=== PATIENT | female | born 1965 | race Hispanic/Latino ===

== ENCOUNTER 2018-11-10 03:20 | Emergency (ER) | payer BC, SELFPAY ==
[2018-11-10] MEDS ORDERED: FENTANYL CITR 100 MCG/2 ML ONE (03:45)
[2018-11-10] MEDS ORDERED: NA CHLORIDE 0.9% 1,000 ML ONE ×3 (03:46→07:00)
[2018-11-10 04:01] LABS: Absolute Lymphocytes (CBC) 1.1 K/uL (0.7-4.9); Absolute Monocytes 0.4 K/uL (0.1-1.3); Absolute Neutrophil 7.4 K/uL (1.8-8.0); Basophils % 0.4 % (0-1.3); Eosinophils % 0.2 % (0-4.4); Hematocrit 42.5 % (36.0-45.0); Lymphocytes % 12.4 % (15.3-44.8); MPV 9.2 fL (7.6-11.3); Monocytes % 4.7 % (3.3-12.3); RBC Red Blood Cell Count 4.81 M/uL (3.86-4.86)
[2018-11-10 04:07] LABS: Potassium 3.9 mmol/L (3.5-5.1)
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
[2018-11-10] MEDS ORDERED: MORPHINE 4 MG/ML SYR ONE (07:05)
[2018-11-10 07:22] VITALS: TEMP 98.3
[2018-11-10 07:23] VITALS: BP 115/61; O2SAT 98
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
--- NOTE | 2018-11-10 10:57 | RAD REPORT ---
EXAM DESCRIPTION: Luis Single View11/10/2018 4:12 am CLINICAL HISTORY: Chest pain COMPARISON: none FINDINGS: The lungs appear clear of acute infiltrate. The heart is normal size IMPRESSION: No acute abnormalities displayed
== END 2018-11-10 07:15 | disposition short-term general hospital (02) ==
LOC: ER 03:20
DX: S32.039A Unspecified fracture of third lumbar vertebra, initial encounter for closed fracture (principal); V49.40XA Driver injured in collision with unspecified motor vehicles in traffic accident, initial encounter
CPT/HCPCS: 36415; 70450; 71045; 71260; 72125; 74177; 80048; 85025; 86850; 86900; 86901; 96361; 96374; 96375; 99285; J3010; J7030; Q9967

== ENCOUNTER 2022-07-29 21:18 | Emergency (ER) | payer OTHER, SELFPAY ==
--- OUTSIDE RECORDS SUMMARY | 2022-07-29 21:21 | XMS REPORT | Continuity of Care Document ---
:1965 Author Organization [facility] t Address [address] [place] [address] Care Team Providers Name Role Phone Adam Borden Attending Clinician Unavailable Oswaldo Attending Clinician Unavailable Muriel López Attending Clinician [phone] Mariana Brown DO Attending Clinician MARIANA BROWN Attending Clinician Unavailable ROMELIA DODSON M.D. Attending Clinician Unavailable Adam Borden Admitting Clinician Unavailable Oswaldo Admitting Clinician Unavailable Payers Payer Name Policy Type Policy Number Effective Date Expiration Date Barbie baker [place] (EPO) [id number] 2021 00:00:00 [facility] [id number] (EPO) [facility] [id number] (HMO) [facility] [id number] 2015 00:00:00 Problems Condition Condition Condition Status Onset Resolution Last Treating Co mments Source Name Details Category Date Date Treatment Clinician Date No known No known Disease Unive rs active active ity of problems problems [facility] History of History of Problem [facility]olve [facility] cholestero cholestero an s l l Lumbar Lumbar Problem Active [facility] pain pain Physici ans Thoracic Thoracic Problem Active [facility] back pain back pain Phys ici ans Traumatic Traumatic Problem Active [facility] compressio compressio Ph ysici n fracture n fracture an s of L1 of L1 lumbar lumbar vertebra vertebra with with routine routine healing, healing, subsequent subsequent encounter encounter Compressio Compressio Problem Active U T n fracture n fracture Ph ysici of T1 of T1 ans vertebra vertebra with with routine routine healing healing Allergies, Adverse Reactions, Alerts Allergy Allergy Status Severity Reaction(s) Onset Inactive Treating Comm ents Source Name Type Date Date Clinician ibuprofe DA Active SV BREAK OUT [facility] n HIVES 03-10 [place] 00:00: d 00 [facility] [place] canola FA Active SV HIVES [facility] oil 03-10 [place] 00:00: d 00 [facility] [place] Mink Oil Propensi Active Hives Univer s ty to 10-15 ity of adverse 00:00: [place] reaction 00 Medical s Branch MINK OIL DRUG Active Hives Univers INGREDI 10-15 ity of 00:00: [place] 00 Medical Branch Penicill drug Active UT ins allergy Physici ans sulfa drug Active [facility] allergy Physici ans Family History Family Member Diagnosis Comments Start Date Stop Date Source Unknown Family Family history of Family History [facility] Member asthma Social History Social Habit Start Date Stop Date Quantity Comments Source Sex Assigned At Uni versity [facility] Exposure to SARS-CoV-2 Not sure [facility] [place] (event) [facility] [place] Smoking Status Start Date Stop Date Source Unknown if ever smoked Universit y [facility] Medications Ordered Filled Start Stop Current Ordering Indication Dosage Frequency Signature Comments Components Source Medication Medication Date Date Medication? Clinician (SIG) Name Name predniSONE 2020- No [id number] 50mg Take 5 Univers 10 mg 10-16 tablets by ity of tablet 00:00: 05:59 mouth [place] 00 :00 daily for Medical 4 days. Branch EPINEPHrine 2020- No .3mg 0.3 mg, Un gene 1:1,000 (10-15 Intramuscu it y of mg/mL) 11:45: 11:45 lar, [place]CE[place] (ADRENALIN[place] 00 :00 1 dose, Medic al injection 10/15/20 Bran ch 0.3 mg at 0545, STAT famotidine 2020- No 20mg 20 mg, Univ ers (PEPCID 10-15 Slow IV ity of (PF)) 11:45: 10:49 Push, [place] injection 00 :00 ONCE, 1 Medical 20 mg dose, Fri Branch 10/15/20 at 0545, PAM diphenhydrA No 25mg 25 mg, Uni vers MINE 10-15 Slow IV ity of (BENADRYL) 11:45: 10:49 Push, [place] injection 00 :00 ONCE, 1 Medical 25 mg dose, Fri Branch 10/15/20 at 0545, STAT methylpredn No 125mg 125 mg, IV Univers isolone sod 10-15 Piggyback, i ty of succ 11:45: 10:47 ONCE, 1 [place] (SOLU-MEDRO 00 :00 dose, Sun Med ical L) 10/15/20 at Branch injection 0545, STAT 125 mg EPINEPHrine No [id number] .15mg 0.3 mL by Univers 0.15 mg/0.3 10-15 Intramuscu i ty of mL 00:00: 05:59 lar route [place] injection 00 :00 once now Medica l for 1 Branch dose. ketorolac Yes 10mg Take 1 [facility] s 10 mg 6-09 tablet by ity of tablet 00:00: mouth [place] 00 every 6 Medical (six) Branch hours as needed for Pain (scale 7-10). Atorvastati Atorvastati Yes U T n Calcium n Calcium Physi ci 80 MG Oral 80 MG Oral ans Tablet Tablet Vital Signs Vital Name Observation Time Observation Value Comments Source Systolic blood 2020-10-15 12:00:00 117 mm[Hg] [facility]astolic blood 2020-10-15 12:00:00 70 mm[Hg] [facility] Heart rate 2020-10-15 12:00:00 96 /min [facility] Respiratory rate 2020-10-15 12:00:00 15 /min [facility] Oxygen saturation in 2020-10-15 12:00:00 97 /min [facility] Arterial blood by [facility] Pulse oximetry Branch Body temperature 2020-10-15 10:41:00 36.56 Vy [facility] Body height 2020-10-15 10:41:00 177.8 cm [facility] Body weight 2020-10-15 10:41:00 70.308 kg [facility] BMI 2020-10-15 10:41:00 22.24 kg/m2 [facility] Height 2018-11-25 12:11:00 67 [in_us] [facility] Weight 2018-11-25 12:11:00 153 [lb_av] [facility] Body Mass Index 2018-11-25 12:11:00 23.96 kg/m2 [facility] Calculated Height 2018-11-20 08:37:00 60 [in_us] [facility] Weight 2018-11-20 08:37:00 9 [lb_av] [facility] Body Mass Index 2018-11-20 08:37:00 1.76 kg/m2 [facility] Calculated Procedures Procedure Date / Time Performed Performing Clinician [facility] e Physical Therapy 2019-02-12 00:00:00 [facility] [U] XRAY SPINE THORACIC 2 2019-02-11 00:00:00 [facility] VWS [id number] [U] XRAY SPINE LUMBOSACRAL 2 2019-02-11 00:00:00 [facility] OR 3 VWS [id number] [U] XRAY SPINE LUMBOSACRAL 2 2018-12-11 00:00:00 [facility] OR 3 VWS [id number] [U] XRAY SPINE THORACIC 2 2018-12-11 00:00:00 [facility] VWS [id number] History of Tonsillectomy [facility] History of Appendectomy [facility] History of Gallbladder [facility] surgery Encounters Start End Encounter Admission Attending Care Care Encounter Source Date/Time Date/Time Type Type Clinicians Facility Department ID 2022-07-11 2022-07-11 Outpatient Adam Sun [facility] DAYS 0 [id number] [facility] 05:30:00 05:30:00 93 [facility] 2022-04-15 2022-04-15 [id number] [place] 01:56:00 01:56:00 [id number] [facility] 2022-03-15 2022-03-15 Outpatient Adam Sun [facility] LA6 [id number] [facility] 08:32:00 08:32:00 [id number] [facility] 2022-03-15 2022-03-15 Outpatient Adam Sun [facility] DA[facility] LA0 [id number] [facility] 08:32:00 08:32:00 18 [facility] 2022-03-11 2022-03-11 Outpatient Matheson_L [facility] [id number] [place] 02:32:00 02:32:00 [facility] 2022-02-07 2022-02-07 Outpatient Matheson_L [facility]U [id number] [place] 10:35:00 10:35:00 [facility] 2022-02-07 2022-02-07 Outpatient Matheson_L [facility]U [id number] [place] 10:35:00 10:35:00 [facility] 2021-12-29 2021-12-29 Outpatient Matheson_L [facility]U [facility]U [id number] [place] 11:06:00 11:06:00 [id number] [facility] 2021-12-29 2021-12-29 Outpatient Matheson_L [facility]U [facility]U [id number] [place] 11:06:00 11:06:00 [id number] [facility] 2021-12-29 2021-12-29 Outpatient Matheson_L [facility]U [facility]U [id number] [place] 11:06:00 11:06:00 [id number] [facility] 2021-12-29 2021-12-29 Outpatient Matheson_L HMU HMU [id number] [place] 11:06:00 11:06:00 [id number] [facility] 2021-12-21 2021-12-21 Outpatient Matheson_L [facility]U HMU [id number] [place] 11:37:00 11:37:00 [facility] 2021-12-20 2021-12-20 Outpatient Matheson_L HMU HMU [id number] [place] 06:40:00 06:40:00 [facility] 2021-12-20 2021-12-20 Outpatient Rene, [facility]U HMU [id number] 00:00:00 00:00:00 Muriel [id number] 2021-12-15 2021-12-15 Outpatient Matheson_L HMU HMU [id number] [place] 02:27:00 02:27:00 [facility] 2021-12-13 2021-12-13 Outpatient Oswaldo [facility]U U [id number] [place] 04:19:00 04:19:00 [facility] 2020-10-15 2020-10-15 [facility] [id number] Univers 04:37:00 07:00:00 [id number] [id number] [place] [id number] Branch 2020-10-15 2020-10-15 Emergency [facility] [id number] Univers 04:37:00 04:37:00 MARIANA [facility] [place] 2019-02-12 2019-02-12 L[facility] [id number] [place] 14:00:00 14:00:00 t; [facility] 2018-12-16 2018-12-16 [facility] 50 [id number] [place] 08:45:00 08:45:00 t; [facility] 2018-11-18 2018-11-18 [facility] 49 [id number] [place] 10:00:00 10:00:00 t; [facility] Results Test Description Test Time Test Comments Results Result Comments Source PROTHROMBIN TIME 2022-07-10 10:24:00 Test Item Value Reference Range Interpretation Comme nts PT PATIENT (test code = PTP) 12.0 SECONDS 9.3-12.9 N INTERNATIONAL NORMAL RATIO 1.05 INR Unit 0.8-1.2 N TARGET INR BY INDICATION (test code = INR) Indication INR1. Prophylaxis of venous thrombos is 2.0 - 3.0 (orthopedic cuauhtemoc yariel), Prophylaxis of venous thrombosis (oth er than high-risk surge ry), Treatment of Deep Vein Thrombosis/Pulm onary Embolism, Prevention of s ystemic embolism - Tissue heart valves, Acute Myocardial Infa rction (to prevent systemi c embolism), Valvular heart disease, Acute Myocardial Infa rction (to prevent systemi c embolism), Valvular heart disease, Atrial Fibrillation, B ileaflet mechanical valv e in aortic position.2. Mec hanical prosthetic valv es (high risk), 2.5 - 3.5 Prese nce of Lupus Anticoagulant o r Antiphospholipi d Antibodies, Prevention of s ystemic embolism - Acute Myocard ial Infarction (to prevent rec urrent infarct). THROMBOPLASTIN TIME [id number] 10:24:00 Test Item Value Reference Range Interpretation Comments THROMBOPLASTIN TIME PARTIAL 33.2 SECONDS 26-35 N (test code = PTT) COVID 19 INHOUSE [id number] 10:10:00 Test Item Value Reference Range Interpretation Comments COVID 19 INHOUSE AG NEGATIVE Negative Per manu facturer, (test code = negative result s should [id number]) be treated aspr esumptive and, if inconsi stent with clinical signs andsymptoms or necessary for patient man agement, should betested with an alternative mol ecular assay. Negative resultsdo not preclude SA RS-CoV-2 infection and s hould not be usedas the s ole basis for patient man agement decisions. Nega tive results should be considered in t he context of apatient's r ecent exposures, hist ory, presence of cli nicalsigns and symptoms co nsistent with COVID-19. BASIC METABOLIC [id number] 10:08:00 Test Item Value Reference Range Interpretation Comments SODIUM (test code = NA) 137 mmol/L 134-147 N POTASSIUM (test code = 4.0 mmol/L 3.4-5.0 N K) CHLORIDE (test code = 102 mmol/L 100-108 N CL) CARBON DIOXIDE (test 29 mmol/L 21-32 N code = CO2) ANION GAP (test code = 6.0 GAP calc 4.0-15.0 N GAP) GLUCOSE (test code = 91 MG/DL 70-110 N GLU) BLOOD UREA NITROGEN 17 MG/DL 7-18 N (test code = BUN) GLOMERULAR FILTRATION >=60 max estimate >60 RATE (test code = GFR) estGFR CREATININE (test code = 0.8 MG/DL 0.6-1.0 N CREAT) CALCIUM (test code = CA) 9.8 MG/DL 8.5-10.1 N CBC W/AUTO [id number] 10:02:00 Test Item Value Reference Range Interpretation Comments WHITE BLOOD CELL (test code = 5.5 K/mm3 3.5-11.0 N WBC) RED BLOOD CELL (test code = 4.76 M/mm3 4.70-6.10 N RBC) HEMOGLOBIN (test code = HGB) 13.7 G/DL 10.4-14.9 N HEMATOCRIT (test code = HCT) 41.3 % 31.5-44.1 N MEAN CELL VOLUME (test code = 86.8 Fl 84.5-98.6 N MCV) MEAN CELL HGB (test code = MCH) 28.8 pg 27.0-34.2 N MEAN CELL HGB CONCETRATION 33.2 G/DL 31.5-34.0 N (test code = MCHC) RED CELL DISTRIBUTION WIDTH 12.7 SD 11.5-14.5 N (test code = RDW) PLATELET COUNT (test code = 293 K/mm3 150-450 N PLT) MEAN PLATELET VOLUME (test code 10.00 fL 7.0-10.5 N = MPV) NEUTROPHIL % (test code = NT%) 61.8 % 40-76 N IMMATURE GRANULOCYTE % (test 0.2 % 0.0-5.0 N code = IG%) LYMPHOCYTE % (test code = LY%) 26.8 % 20.5-51.1 N MONOCYTE % (test code = MO%) 10.1 % 1.7-9.3 H EOSINOPHIL % (test code = EO%) 0.7 % 0.0-6.0 N BASOPHIL % (test code = BA%) 0.4 % 0.0-2.0 N NUCLEATED RBC % (test code = 0.0 /100WBC% 0.0-1.0 N NRBC%) NEUTROPHIL # (test code = NT#) 3.4 K/mm3 1.8-7.6 N IMMATURE GRANULOCYTE # (test 0.01 x10 3/uL 0.00-0.03 N code = IG#) LYMPHOCYTE # (test code = LY#) 1.5 K/mm3 0.6-3.2 N MONOCYTE # (test code = MO#) 0.6 K/mm3 0.3-1.1 N EOSINOPHIL # (test code = EO#) 0.0 K/mm3 0.0-0.4 N BASOPHIL # (test code = BA#) 0.0 K/mm3 0.0-0.1 N NUCLEATED RBC # (test code = 0.0 K/mm3 0.0-0.1 N NRBC#) MANUAL DIFF REQUIRED (test code NO DIFF/SCN CRITERIA = MDIFF) BASIC METABOLIC [id number] 15:16:00 Test Item Value Reference Range Interpretation Comments SODIUM (test code = NA) 140 mmol/L 134-147 N POTASSIUM (test code = 4.9 mmol/L 3.4-5.0 N K) CHLORIDE (test code = 108 mmol/L 100-108 N CL) CARBON DIOXIDE (test 27 mmol/L 21-32 N code = CO2) ANION GAP (test code = 5.0 GAP calc 4.0-15.0 N GAP) GLUCOSE (test code = 97 MG/DL 70-110 N GLU) BLOOD UREA NITROGEN 14 MG/DL 7-18 N (test code = BUN) GLOMERULAR FILTRATION >=60 max estimate >60 RATE (test code = GFR) estGFR CREATININE (test code = 0.8 MG/DL 0.6-1.0 N CREAT) CALCIUM (test code = CA) 9.7 MG/DL 8.5-10.1 N COVID 19 INHOUSE [id number] 15:12:00 Test Item Value Reference Range Interpretation Comments COVID 19 INHOUSE AG NEGATIVE Negative Per manu facturer, (test code = negative result s should [id number]) be treated aspr esumptive and, if inconsi stent with clinical signs andsymptoms or necessary for patient man agement, should betested with an alternative mol ecular assay. Negative resultsdo not preclude SA RS-CoV-2 infection and s hould not be usedas the s ole basis for patient man agement decisions. Nega tive results should be considered in t he context of apatient's r ecent exposures, hist ory, presence of cli nicalsigns and symptoms co nsistent with COVID-19. PROTHROMBIN [id number] 15:00:00 Test Item Value Reference Range Interpretation Comments PT PATIENT (test 11.6 SECONDS 9.3-12.9 N code = PTP) INTERNATIONAL NORMAL 1.02 INR Unit 0.8-1.2 N TARGE T INR BY RATIO (test code = INDICATIO N Indication INR) INR1. Prophylax is of venous thrombos is 2.0 - 3.0 (orthoped ic surgery), Proph ylaxis of venous throm bosis (other than hig h-risk surgery), Treat ment of Deep Vein Thrombosis/Pulm onary Embolism, Preve ntion of systemic emb olism - Tissue heart va lves, Acute Myocardia l Infarction (to prevent systemic emboli sm), Valvular heart disease, Acute Myocardial Infa rction (to prevent sys temic embolism), Valv ular heart disease, Atrial Fibrillation, Bileaflet mecha nical valve in aortic position.2. Mec hanical prosthetic valv es (high risk), 2. 5 - 3.5 Presence of Lup us Anticoagulant o r Antiphospholipi d Antibodies, Pre vention of systemic emb olism - Acute Myocardia l Infarction (to prevent recurrent infar ct). THROMBOPLASTIN TIME [id number] 15:00:00 Test Item Value Reference Range Interpretation Comments THROMBOPLASTIN TIME PARTIAL 33.1 SECONDS 26-35 N (test code = PTT) CBC W/AUTO [id number] 14:54:00 Test Item Value Reference Range Interpretation Comments WHITE BLOOD CELL (test code = 5.9 K/mm3 3.5-11.0 N WBC) RED BLOOD CELL (test code = 4.72 M/mm3 4.70-6.10 N RBC) HEMOGLOBIN (test code = HGB) 13.7 G/DL 10.4-14.9 N HEMATOCRIT (test code = HCT) 41.0 % 31.5-44.1 N MEAN CELL VOLUME (test code = 86.9 Fl 84.5-98.6 N MCV) MEAN CELL HGB (test code = MCH) 29.0 pg 27.0-34.2 N MEAN CELL HGB CONCETRATION 33.4 G/DL 31.5-34.0 N (test code = MCHC) RED CELL DISTRIBUTION WIDTH 12.3 SD 11.5-14.5 N (test code = RDW) PLATELET COUNT (test code = 285 K/mm3 150-450 N PLT) MEAN PLATELET VOLUME (test code 10.20 fL 7.0-10.5 N = MPV) NEUTROPHIL % (test code = NT%) 60.5 % 40-76 N IMMATURE GRANULOCYTE % (test 0.2 % 0.0-5.0 N code = IG%) LYMPHOCYTE % (test code = LY%) 27.9 % 20.5-51.1 N MONOCYTE % (test code = MO%) 10.1 % 1.7-9.3 H EOSINOPHIL % (test code = EO%) 0.8 % 0.0-6.0 N BASOPHIL % (test code = BA%) 0.5 % 0.0-2.0 N NUCLEATED RBC % (test code = 0.0 /100WBC% 0.0-1.0 N NRBC%) NEUTROPHIL # (test code = NT#) 3.6 K/mm3 1.8-7.6 N IMMATURE GRANULOCYTE # (test 0.01 x10 3/uL 0.00-0.03 N code = IG#) LYMPHOCYTE # (test code = LY#) 1.7 K/mm3 0.6-3.2 N MONOCYTE # (test code = MO#) 0.6 K/mm3 0.3-1.1 N EOSINOPHIL # (test code = EO#) 0.1 K/mm3 0.0-0.4 N BASOPHIL # (test code = BA#) 0.0 K/mm3 0.0-0.1 N NUCLEATED RBC # (test code = 0.0 K/mm3 0.0-0.1 N NRBC#) MANUAL DIFF REQUIRED (test code NO DIFF/SCN CRITERIA = MDIFF) - XR CHEST 1 [id number] 14:50:00 [facility] FRANKIELANDName: LIVIA WILSON : 1965 Sex: F Name: LIVIA HILLIARD [place] : 1965 Age/S: 57 / F [id number] Unit #: [id number] Loc:[place] [address] Phys: Adam Borden MD Acct: [id number] Dis Date: Status: PRE PRC PHONE #: [phone] Exam Date: 03/10/2022 1446 FAX #: Reason: PRE OP EXAMS: CPT: [id number] XR CHEST 1 V [id number] Fluoro Time: DAP (Gy m2): Air Kerma (mGy): - XR CHEST 1 V INDICATION:Preop LOCATION: T18 The lungs areclear. The cardiomediastinal silhouette is within normal limits. The bony thorax is unremarkable. IMPRESSION: No active disease. at 1450 Reported and signed by: Remigio Akers M.D. CC: Adam Borden MD PAGE 1 Signed Report Name: LIVIA WILSON [place] : 1965 Age/S: 57 / F [id number] Unit #: [id number] Loc: [place] [address] Phys: Adam Borden MD Acct: [id number] Dis Date: Status: PRE [facility] PHONE #: [phone] Exam Date: 03/10/2022 1446 FAX #: Reason: PRE OP EXAMS: CPT: [id number] XR CHEST 1 V [id number] Fluoro Time: DAP (Gy m2): Air Kerma (mGy): (Continued) Technologist: Melly Patel, RT(R) Trnscb Date/Time: 03/10/2022 (1450) Echo Orig Print D/T: S: 03/10/2022 ([id number]) PAGE 2 Signed Report
[2022-07-29] MEDS ORDERED: FAMOTIDINE 20 MG/2 ML VIAL IV ONE (21:45)
--- NOTE | 2022-07-29 23:20 | ER ---
Nurse's Notes [facility] Name: Karen Orellana Age: 57 yrs Sex: Female : 1965 Arrival Date: 07/29/2022 Time: 21:44 Bed 28 Private MD: Diagnosis: Allergic Reaction;Urticaria, unspecified Presentation: 07/29 21:57 Chief complaint: EMS states: they were toned out for report of pt having an allergic bb reaction. Coronavirus screen: At this time, the client does not indicate any symptoms associated with coronavirus-19. Ebola Screen: No symptoms or risks identified at this time. Onset: The symptoms/episode began/occurred suddenly. Anaphylaxis evaluation, no signs or symptoms of anaphylaxis were noted. Initial Sepsis Screen: Does the patient meet any 2 criteria? No. Patient's initial sepsis screen is negative. Does the patient have a suspected source of infection? No. Patient's initial sepsis screen is negative. Risk Assessment: Do you want to hurt yourself or someone else? Patient reports no desire to harm self or others. Onset of symptoms was July 29, 2022. 21:57 Method Of Arrival: EMS: [facility] bb 21:57 Acuity: JESSIKA 4 bb Historical: - Allergies: 21:59 ibuprofen; bb 21:59 multiple environmental allergies; bb - Immunization history:: Client reports having NOT received the Covid vaccine. - Social history:: Smoking status: unknown. Screenin:00 Abuse screen: Denies threats or abuse. Nutritional screening: No deficits noted. bb Tuberculosis screening: No symptoms or risk factors identified. Fall Risk None identified. Assessment: 22:00 General: Appears in no apparent distress. uncomfortable, Behavior is calm, cooperative. bb Pain: Denies pain. Neuro: Level of Consciousness is awake, alert, obeys commands, Oriented to person, place, time, situation. Cardiovascular: Capillary refill < 3 seconds Patient's skin is warm and dry. Respiratory: Airway is patent Respiratory effort is even, unlabored, Breath sounds are clear bilaterally. GI: No signs and/or symptoms were reported involving the gastrointestinal system. Derm: Skin is pink, warm \T\ dry. Musculoskeletal: Circulation, motion, and sensation intact. 22:09 Reassessment: Patient states feeling better. Patient states symptoms have improved. tw5 General: Appears in no apparent distress. comfortable. 23:37 Reassessment: Patient states feeling better. Patient states symptoms have improved. tw5 General: Appears in no apparent distress. Behavior is calm. Vital Signs: 21:57 BP 124 / 67; Pulse 93; Resp 20 S; Temp 98(O); Pulse Ox 96% on R/A; Weight 72.57 kg (R); bb Height 5 ft. 7 in. (170.18 cm) (R); 23:37 BP 103 / 69; Pulse 85; Resp 18; Pulse Ox 99% on R/A; tw5 21:57 Body Mass Index 25.06 (72.57 kg, 170.18 cm) bb ED Course: 21:44 Patient arrived in ED. bb 21:44 John Mcpherson DO is Attending Physician. ms3 21:59 Triage completed. bb 21:59 Arm band placed on Patient placed in an exam room, on a stretcher, on pulse oximetry. bb 22:00 Patient has correct armband on for positive identification. Bed in low position. Call bb light in reach. Side rails up X2. Pulse ox on. NIBP on. Warm blanket given. 22:00 Maintain EMS IV. Site clean \T\ dry. Gauge \T\ site: 20g bilateral ACs. bb 22:08 Nicole Sherwood is Primary Nurse. tw5 23:18 Rk Chapman DO is Referral Physician. ms3 23:37 No provider procedures requiring assistance completed. IV discontinued, intact, tw5 bleeding controlled, No redness/swelling at site. Pressure dressing applied. Administered Medications: 21:56 Drug: Pepcid (famotidine) 20 mg Route: IVP; Site: right antecubital; bb 22:09 Follow up: Response: No adverse reaction tw5 Medication: 22:00 VIS not applicable for this client. bb Outcome: 23:19 Discharge ordered by MD. ms3 23:37 Discharged to home with family. tw5 23:37 Condition: improved 23:37 Discharge instructions given to patient, Instructed on discharge instructions, follow up and referral plans. medication usage, Demonstrated understanding of instructions, follow-up care, medications, Prescriptions given X 1. 23:48 Patient left the ED. tw5 Signatures: Jia Betts RN RN bb John Mcpherson DO DO ms3 Nicole Sherwood tw5 Corrections: (The following items were deleted from the chart) 23:38 23:37 BP 103 / 69; Pulse 18bpm; Pulse Ox 99% RA; tw5
--- NOTE | 2022-07-29 23:20 | EDPHYS ---
Physician Documentation [facility] Name: Karen Orellana Age: 57 yrs Sex: Female : 1965 Arrival Date: 07/29/2022 Time: 21:44 Bed 28 Private MD: ED Physician John Mcpherson HPI: 07/29 23:19 This 57 yrs old Female presents to ER via EMS with complaints of Allergic ms3 Reaction. 23:19 57-year-old female with past medical history of allergic reactions presents for ms3 allergic reaction to an unknown agent. EMS states patient had urticaria on their arrival. 25 mg of Benadryl was given IM and 25 mg Benadryl was given IV. 125 mg Solu-Medrol was given IV, and patient received 700 mL of IV fluids in route. Prior to EMSs arrival patient's family administered 0.3 mg epinephrine IM. On arrival patient states her symptoms have improved. Patient denies pain. Patient denies alleviating or inciting factors. Patient denies fevers, chills, nausea, vomiting. Historical: - Allergies: 21:59 ibuprofen; bb 21:59 multiple environmental allergies; bb - Immunization history:: Client reports having NOT received the Covid vaccine. - Social history:: Smoking status: unknown. ROS: 23:19 Constitutional: Negative for fever, and chills. Neck: Negative for injury, pain, and ms3 swelling, Cardiovascular: Negative for chest pain, and palpitations. 23:19 MS/Extremity: Negative for injury and deformity, Skin: Negative for injury, rash, and discoloration. 23:19 Respiratory: Positive for shortness of breath. 23:19 Skin: Positive for rash. 23:19 All other systems are negative. Exam: 23:19 Constitutional: This is a well developed, well nourished patient who is awake, alert, ms3 and in no acute distress. Head/Face: Normocephalic, atraumatic. Eyes: Pupils equal round and reactive to light, extra-ocular motions intact. Lids and lashes normal. Conjunctiva and sclera are non-icteric and not injected. Periorbital areas with no swelling, redness, or edema. Neck: Trachea midline, no cervical lymphadenopathy. Supple, full range of motion without nuchal rigidity, or vertebral point tenderness. No Meningismus. Chest/axilla: Normal chest wall appearance and motion. Nontender with no deformity. Cardiovascular: Regular rate and rhythm with a normal S1 and S2. No gallops, murmurs, or rubs. Normal PMI, no JVD. No pulse deficits. Respiratory: Lungs have equal breath sounds bilaterally, clear to auscultation and percussion. No rales, rhonchi or wheezes noted. No increased work of breathing, no retractions or nasal flaring. Abdomen/GI: Soft, non-tender, with normal bowel sounds. No distension or tympany. No guarding or rebound. No evidence of tenderness throughout. Skin: Warm, dry with normal turgor. Normal color with no rashes, no lesions, and no evidence of cellulitis. MS/ Extremity: Pulses equal, no cyanosis. Neurovascular intact. Full, normal range of motion. Neuro: Awake and alert, GCS 15, oriented to person, place, time, and situation. Cranial nerves II-XII grossly intact. Motor strength 5/5 in all extremities. Sensory grossly intact. Cerebellar exam normal. Normal gait. Psych: Awake, alert, with orientation to person, place and time. Behavior, mood, and affect are within normal limits. Vital Signs: 21:57 BP 124 / 67; Pulse 93; Resp 20 S; Temp 98(O); Pulse Ox 96% on R/A; Weight 72.57 kg (R); bb Height 5 ft. 7 in. (170.18 cm) (R); 23:37 BP 103 / 69; Pulse 85; Resp 18; Pulse Ox 99% on R/A; tw5 21:57 Body Mass Index 25.06 (72.57 kg, 170.18 cm) bb MDM: 21:44 Patient medically screened. ms3 23:19 Data reviewed: vital signs, nurses notes, and as a result, I will discharge patient. ms3 Counseling: I had a detailed discussion with the patient and/or guardian regarding: the historical points, exam findings, and any diagnostic results supporting the discharge/admit diagnosis, the need for outpatient follow up, to return to the emergency department if symptoms worsen or persist or if there are any questions or concerns that arise at home. ED course: Patient monitored in the emergency department and symptoms continue to improve. Patient states she is improved, she is alert and oriented x4, in no apparent distress, nontoxic-appearing. Patient to follow-up with her primary care physician in 2 to 3 days. Patient understands and agrees with plan. All questions were answered. Return cautions discussed include worsening symptoms, or any other concerns. Administered Medications: 21:56 Drug: Pepcid (famotidine) 20 mg Route: IVP; Site: right antecubital; bb 22:09 Follow up: Response: No adverse reaction tw5 Disposition Summary: 07/29/22 23:19 Discharge Ordered Location: Home ms3 Condition: Stable ms3 Diagnosis - Allergic Reaction ms3 - Urticaria, unspecified ms3 Followup: ms3 - With: Rk Chapman DO - When: 2 - 3 days - Reason: Recheck today's complaints Discharge Instructions: - Discharge Summary Sheet ms3 - Allergies, Adult ms3 - Hives, [id number] ms3 Forms: - Medication Reconciliation Form ms3 - Thank You Letter ms3 - Antibiotic Education ms3 - Prescription Opioid Use ms3 Prescriptions: - EpiPen 0.3 mg/0.3 mL Injection auto-injector - inject 0.3 milliliter by INTRAMUSCULAR route once, may repeat in 15 min if not ms3 improved as needed for anaphylaxis; 1 Dual Pack; Refills: 0, Product Selection Permitted Signatures: Jia Betts RN RN John Milligan DO DO ms3 Nicole Sherwood tw5
[2022-07-30 00:14] VITALS: TEMP 98
[2022-07-30 00:15] VITALS: BP 103/69; O2SAT 99
== END 2022-07-29 23:48 | disposition home or self-care (01) ==
LOC: ER 21:18
DX: T78.40XA Allergy, unspecified, initial encounter (principal); L50.9 Urticaria, unspecified; X58.XXXA Exposure to other specified factors, initial encounter
CPT/HCPCS: 96374; 99284

== ENCOUNTER 2024-05-31 15:36 | Emergency (ER) | payer OTHER ==
[2024-05-31] MEDS ORDERED: METHYLPREDNISOLONE 125 MG INJ ONE (16:48)
[2024-05-31] MEDS ORDERED: HYDROCODONE/APAP 10/325 TAB ONE (16:49)
[2024-05-31] MEDS ORDERED: ONDANSETRON 4 MG (ODT) TAB ONE (16:49)
--- NOTE | 2024-05-31 17:34 | ER ---
Nurse's Notes [facility] Name: Karen Orellana Age: 59 yrs Sex: Female : 1965 Arrival Date: 05/31/2024 Time: 15:36 Bed 14 Private MD: Diagnosis: Chronic thoracic back pain Presentation: 05/31 15:46 Chief complaint: Patient states: back pain x 2 weeks ago. aa5 15:46 Coronavirus screen: At this time, the client does not indicate any symptoms associated aa5 with coronavirus-19. Ebola Screen: Patient denies travel to an Ebola-affected area in the 21 days before illness onset. Initial Sepsis Screen: Does the patient meet any 2 criteria? No. Patient's initial sepsis screen is negative. Does the patient have a suspected source of infection? No. Patient's initial sepsis screen is negative. Risk Assessment: Do you want to hurt yourself or someone else? Patient reports no desire to harm self or others. Onset of symptoms was May 2024. 15:46 Acuity: JESSIKA 3 aa5 15:46 Method Of Arrival: Ambulatory aa5 Historical: - Allergies: 15:52 Ibuprofen (Hives); aa5 - PMHx: 15:52 Anxiety; Arthritis; Prolapsed bladder; Back pain; aa5 - Immunization history:: Adult Immunizations unknown. - Infectious Disease History:: Denies. - Social history:: Smoking status: Patient denies any tobacco usage or history of. Screenin:28 [facility] ED Fall Risk Assessment (Adult) History of falling in the last 3 months, db including since admission No falls in past 3 months (0 pts) Confusion or Disorientation No (0 pts) Intoxicated or Sedated No (0 pts) Impaired Gait No (0 pts) Mobility Assist Device Used No (0 pt) Altered Elimination No (0 pt) Score/Fall Risk Level 0 - 2 = Low Risk Oriented to surroundings, Maintained a safe environment. Abuse screen: Denies threats or abuse. Denies injuries from another. Nutritional screening: No deficits noted. Tuberculosis screening: No symptoms or risk factors identified. Assessment: 15:50 Reassessment: Patient appears in no apparent distress at this time. Patient and/or db family updated on plan of care and expected duration. Pain level reassessed. Patient is alert, oriented x 3, equal unlabored respirations, skin warm/dry/pink. General: Appears in no apparent distress. comfortable, Behavior is calm, cooperative. Pain: Complains of pain in back. Neuro: Level of Consciousness is awake, alert, obeys commands, Oriented to person, place, time, situation. Respiratory: Airway is patent Respiratory effort is even, unlabored, Respiratory pattern is regular, symmetrical. 17:44 Reassessment: Patient appears in no apparent distress at this time. Patient and/or db family updated on plan of care and expected duration. Pain level reassessed. Patient is alert, oriented x 3, equal unlabored respirations, skin warm/dry/pink. Patient states feeling better. Patient states symptoms have improved. Vital Signs: 15:46 BP 145 / 83; Pulse 83; Resp 18 S; Temp 98.9(O); Pulse Ox 99% on R/A; Weight 70.76 kg aa5 (R); Height 5 ft. 7 in. (R); 17:00 BP 129 / 76; Pulse 72; Resp 16; Pulse Ox 98% on R/A; db 15:46 Body Mass Index 24.43 (70.76 kg, 170.18 cm) aa5 ED Course: 15:40 Patient arrived in ED. mg5 15:46 Arm band placed on Patient placed in an exam room, on a stretcher. aa5 15:50 Aggie Lee, STEPHANE is Primary Nurse. db 15:53 Triage completed. aa5 15:57 Juanjo Munson PA is PHCP. jr8 15:57 Forest Reyes MD is Attending Physician. jr8 17:28 Patient has correct armband on for positive identification. Bed in low position. Call db light in reach. Side rails up X 1. Pulse ox on. NIBP on. Warm blanket given. Pillow given. 17:44 Provided Education on: DISCHARGE. db 17:44 No provider procedures requiring assistance completed. Patient did not have IV access db during this emergency room visit. Administered Medications: 16:50 Drug: MethylPREDNISolone Sodium Succinate IM 125 mg IM once Route: IM; Site: right db ventrogluteal; 17:45 Follow up: Response: No adverse reaction db 16:50 Drug: [place] PO 10 mg-325 mg 1 tabs PO once Route: PO; db 17:45 Follow up: Response: No adverse reaction db 16:50 Drug: Ondansetron PO 4 mg PO once Route: PO; db 17:45 Follow up: Response: No adverse reaction db Medication: 17:44 VIS not applicable for this client. db Outcome: 17:34 Discharge ordered by . armani 17:44 Discharged to home ambulatory, db 17:44 Condition: stable 17:44 Discharge instructions given to patient, Instructed on discharge instructions, follow up and referral plans. Prescriptions given X 2, 17:46 Patient left the ED. db Signatures: Jessie Faith, RN RN aa5 Juanjo Munson PA PA jr8 Aggie Lee RN RN db Ela Carlos mg5
--- NOTE | 2024-05-31 17:34 | EDPHYS ---
Physician Documentation [facility] Name: Karen Orellana Age: 59 yrs Sex: Female : 1965 Arrival Date: 05/31/2024 Time: 15:36 Bed 14 Private MD: ED Physician Forest Reyes HPI: 05/31 16:27 This 59 yrs old Female presents to ER via Ambulatory with complaints of Back jr8 Pain, Flank Pain. 16:27 The patient presents with pain that is acute. The symptoms are located in the thoracic jr8 area. Onset: The symptoms/episode began/occurred gradually, and became worse and became persistent. The pain does not radiate. Associated signs and symptoms: Pertinent positives: nausea. Severity of symptoms: At their worst the symptoms were moderate, in the emergency department the symptoms are unchanged. The patient has experienced similar episodes in the past, a few times. The patient has not recently seen a physician. 16:28 Patient stated that she has history of mid back pain with arthritis. Has seen spinal jr8 surgeon and is on tramadol and baclofen. Does not like taking them often as it makes her feel "weird". Stated that she has been trying Tylenol at home without relief. Wearing brace to help support spine. Has had intermittent right mid abdominal pain from time to time but currently without pain, fevers, vomiting, diarrhea, or urinary symptoms. . Historical: - Allergies: 15:52 Ibuprofen (Hives); aa5 - PMHx: 15:52 Anxiety; Arthritis; Prolapsed bladder; Back pain; aa5 - Immunization history:: Adult Immunizations unknown. - Infectious Disease History:: Denies. - Social history:: Smoking status: Patient denies any tobacco usage or history of. ROS: 16:28 Eyes: Negative for injury, pain, redness, and discharge, ENT: Negative for injury, jr8 pain, and discharge, Neck: Negative for injury, pain, and swelling, Cardiovascular: Negative for chest pain, palpitations, and edema, Respiratory: Negative for shortness of breath, cough, wheezing, and pleuritic chest pain, MS/Extremity: Negative for injury and deformity, Skin: Negative for injury, rash, and discoloration, Neuro: Negative for headache, weakness, numbness, tingling, and seizure, 16:28 Abdomen/GI: Positive for abdominal pain, nausea, Negative for vomiting, diarrhea, 16:28 Back: Positive for pain at rest, pain with movement, of the thoracic area, Exam: 16:28 Constitutional: This is a well developed, well nourished patient who is awake, alert, jr8 and in no acute distress. Cardiovascular: Regular rate and rhythm with a normal S1 and S2. No gallops, murmurs, or rubs. Normal PMI, no JVD. No pulse deficits. Respiratory: Lungs have equal breath sounds bilaterally, clear to auscultation and percussion. No rales, rhonchi or wheezes noted. No increased work of breathing, no retractions or nasal flaring. Abdomen/GI: Soft, non-tender, with normal bowel sounds. No distension or tympany. No guarding or rebound. No evidence of tenderness throughout. Skin: Warm, dry with normal turgor. Normal color with no rashes, no lesions, and no evidence of cellulitis. MS/ Extremity: Pulses equal, no cyanosis. Neurovascular intact. Full, normal range of motion. Neuro: Awake and alert, GCS 15, oriented to person, place, time, and situation. Cranial nerves II-XII grossly intact. Motor strength 5/5 in all extremities. Sensory grossly intact. Cerebellar exam normal. Normal gait. 16:28 Back: pain, that is moderate, of the Lower thoracic area, ROM is painful, normal spinal alignment noted, CVA tenderness, is absent, vertebral tenderness, is appreciated at T10, T11 and T12, muscle spasm, is appreciated in the left mid back and right mid back, Vital Signs: 15:46 BP 145 / 83; Pulse 83; Resp 18 S; Temp 98.9(O); Pulse Ox 99% on R/A; Weight 70.76 kg aa5 (R); Height 5 ft. 7 in. (R); 17:00 BP 129 / 76; Pulse 72; Resp 16; Pulse Ox 98% on R/A; db 15:46 Body Mass Index 24.43 (70.76 kg, 170.18 cm) aa5 MDM: 15:57 Patient medically screened. [facility] 16:28 Differential diagnosis: Abdominal Aortic Aneurysm arthritis, Fracture Osteoarthritis jr8 ruptured disc, Scoliosis sprain, vertebral fracture, myofascial strain. Data reviewed: vital signs, nurses notes, and as a result, I will discharge patient. 17:32 I considered the following discharge prescriptions or medication management in the [facility] emergency department I discussed and recommended Over The Counter medications, Medications were administered in the Emergency Department. See MAR. Counseling: I had a detailed discussion with the patient and/or guardian regarding the historical points, exam findings, and any diagnostic results supporting the discharge/admit diagnosis, the need for outpatient follow up, a paint coating machine operator, to return to the emergency department if symptoms worsen or persist or if there are any questions or concerns that arise at home. Response to treatment: the patient's symptoms have mildly improved after treatment. Administered Medications: 16:50 Drug: MethylPREDNISolone Sodium Succinate IM 125 mg IM once Route: IM; Site: right db ventrogluteal; 17:45 Follow up: Response: No adverse reaction db 16:50 Drug: [place] PO 10 mg-325 mg 1 tabs PO once Route: PO; db 17:45 Follow up: Response: No adverse reaction db 16:50 Drug: Ondansetron PO 4 mg PO once Route: PO; db 17:45 Follow up: Response: No adverse reaction db Disposition Summary: 05/31/24 17:34 Discharge Ordered Notes: Continue lidocaine patches and tramadol as needed. Location: Home [facility] Problem: new jr8 Symptoms: have improved jr Condition: Stable jr Diagnosis - Chronic thoracic back pain [facility] Followup: jr8 - With: Private Physician - When: 2 - 3 days - Reason: Recheck today's complaints, Continuance of care, Re-evaluation by your physician Discharge Instructions: - Discharge Summary Sheet jr8 - Chronic Back Pain [facility] Forms: - Medication Reconciliation Form jr8 - Antibiotic Education jr8 - Prescription Opioid Use jr8 - Patient Portal Instructions jr8 - Leadership Thank You Letter jr Prescriptions: - Medrol (Umang) 4 mg Oral Tablets, Dose Pack - take 1 tablet ORAL route as directed - follow package instructions; 1 packet; jr8 Refills: 0, Product Selection Permitted - orphenadrine citrate 100 mg Oral Tablet Sustained Release - take 1 tablet ORAL route 2 times per day As needed; 20 tablet; Refills: 0, jr8 Product Selection Permitted Signatures: Jessie Faith RN RN aa5 Juanjo Munson PA PA jr8 Aggie Lee RN RN db Corrections: (The following items were deleted from the chart) 16:31 16:28 Patient stated that she has history of mid back pain with arthritis. Has seen jr8 spinal surgeon and is on tramadol and baclofen. Does not like taking them often as it makes her feel "weird". Stated that she has been trying Tylenol at home without relief. Wearing brace to help support spine. Denies abdominal pain, fevers, vomiting, diarrhea, or urinary symptoms. . jr8
[2024-05-31 17:50] VITALS: TEMP 98.9
[2024-05-31 17:51] VITALS: BP 129/76; O2SAT 98
== END 2024-05-31 17:46 | disposition home or self-care (01) ==
LOC: ER 15:36
DX: M54.6 Pain in thoracic spine (principal); R10.9 Unspecified abdominal pain; R11.0 Nausea
CPT/HCPCS: 96372; 99284; Q0162; J2919